=== PATIENT | female | born 1980 | race Two or more races ===

== ENCOUNTER 2016-09-09 17:23 | Inpatient (IN) | payer SELFPAY ==
[~2016-09-09] VITALS: Ht 154.9 cm; Wt 90.0 kg
[2016-09-09 19:11] LABS: Urine Bilirubin Negative (Negative); Urine Blood Negative /uL (Negative); Urine Color Yellow (Yellow); Urine Glucose Normal (Normal); Urine Mucus FEW (None Seen); Urine Nitrite Negative (Negative); Urine RBC 1 /hpf (0 - 4); Urine Squamous Epithelial Cell FEW /hpf (<5); Urine Urobilinogen Normal (Negative)
[2016-09-09 19:12] LABS: Urine Ketone 2+ (Negative)
[2016-09-09 19:21] LABS: Basophils # (auto) 0.1 uL; Basophils % (auto) 0.4 % (0.0-2.0); DEFINITIVE VIEW TRANSMISSION; Eosinophils # (auto) 0.1 uL; Eosinophils % (auto) 0.5 % (0.0-7.0); Hematocrit 40.9 % (36.0-46.0); Hemoglobin 12.5 g/dL (12.2-16.2); Lymphocytes # (auto) 1.2 uL; Lymphocytes % (auto) 8.2 % (10.0-50.0); Mean Corpuscular Hgb Conc. 30.5 g/dL (32.0-36.0); Mean Corpuscular Volume 75.4 fL (80.0-100.0); Mean Platelet Volume 9.3 fL (7.4-10.4); Monocytes # (auto) 0.9 uL; Neutrophils # (auto) 12.5 uL; Neutrophils % (auto) 84.9 % (37.0-80.0); Platelet Count (auto) 333 10^3/uL (140-450); Red Cell Distribution Width 17.3 % (11.6-16.0); White Blood Cell 14.7 10^3/uL (4.4-10.8)
[2016-09-09 19:39] LABS: Albumin 3.5 g/dL (3.4-5.0); Calcium 8.8 mg/dL (8.5-10.1); Potassium 4.2 mmol/L (3.5-5.1)
[2016-09-09 19:42] LABS: Bilirubin, Total 0.5 mg/dL (0.2-1.0); Total Protein 7.7 g/dL (6.4-8.2)
[2016-09-09 19:54] LABS: Hypochromia Moderate; Platelet Estimate Adequate
[2016-09-10] MEDS ORDERED: ONDANSETRON HCL 4 MG/2 ML VIAL IV ONE (03:45)
[2016-09-10] MEDS ORDERED: MORPHINE SULF INJ 2 MG/ML SYRINGE 1ML IV ONE (03:45)
[2016-09-10] MEDS ORDERED: SODIUM CHLORIDE 0.9% 1,000 ML IV ONE (03:45)
[2016-09-10] MEDS ORDERED: NITROGLYCERIN 0.4 MG SL TAB SL PRN (07:15)
[2016-09-10] MEDS ORDERED: MORPHINE SULF INJ 2 MG/ML SYRINGE 1ML IV PRN (07:15)
[2016-09-10] MEDS ORDERED: cefTRIAXone 1GM/50ML D5W 50 ML IV ONE (08:00)
[2016-09-10] MEDS: FAMOTIDINE (10MG/ML) 2ML VL IV SCH ×2 (08:27→20:38)
[2016-09-10] MEDS: SODIUM CHLORIDE 0.9% 1,000 ML IV SCH ×2 (08:27→18:02)
[2016-09-10] MEDS: MORPHINE SULF INJ 2 MG/ML SYRINGE 1ML IV PRN ×3 (08:28→20:55)
[2016-09-10 10:01] VITALS: BP 166/98
[2016-09-10 11:27] LABS: Amylase 27 U/L (25-115)
[2016-09-10] MEDS: metroNIDAZOLE 500MG/100ML 100 ML IV SCH ×2 (12:50→18:02)
[2016-09-10 13:00] VITALS: BP 158/106
[2016-09-10] MEDS: LORazepam 2MG/ML-1ML VIAL IV PRN (15:33)
[2016-09-10 16:44] VITALS: BP 143/99
[2016-09-10 22:00] VITALS: BP 156/103
[2016-09-11] MEDS: metroNIDAZOLE 500MG/100ML 100 ML IV SCH ×4 (00:07→18:21)
[2016-09-11] MEDS: SODIUM CHLORIDE 0.9% 1,000 ML IV SCH ×3 (03:03→23:03)
[2016-09-11] MEDS: MORPHINE SULF INJ 2 MG/ML SYRINGE 1ML IV PRN ×2 (04:02→10:17)
[2016-09-11 06:12] LABS: INR 1.06 (0.9-1.15); Partial Thromboplastin Time 32.7 sec (22.64-33.71); Prothrombin Time 10.9 sec (9.37-12.3)
[2016-09-11 06:13] VITALS: BP 148/94
[2016-09-11 06:13] LABS: Basophils # (auto) 0 uL; Basophils % (auto) 0.5 % (0.0-2.0); DEFINITIVE VIEW TRANSMISSION; Eosinophils # (auto) 0.3 uL; Hemoglobin 10.6 g/dL (12.2-16.2); Lymphocytes # (auto) 1.3 uL; Lymphocytes % (auto) 18.2 % (10.0-50.0); Mean Corpuscular Hemoglobin 22.7 pg (28.0-32.0); Mean Corpuscular Hgb Conc. 30.4 g/dL (32.0-36.0); Mean Corpuscular Volume 74.7 fL (80.0-100.0); Mean Platelet Volume 9.2 fL (7.4-10.4); Monocytes # (auto) 0.6 uL; Monocytes % (auto) 9.1 % (0.0-12.0); Neutrophils # (auto) 4.8 uL; Neutrophils % (auto) 68.2 % (37.0-80.0); Platelet Count (auto) 290 10^3/uL (140-450)
[2016-09-11 06:31] LABS: Potassium 3.8 mmol/L (3.5-5.1)
[2016-09-11 06:37] LABS: Albumin 2.4 g/dL (3.4-5.0); BUN/Creatinine Ratio 14.3; Calcium 7.7 mg/dL (8.5-10.1); Magnesium 2.2 mg/dL (1.6-2.6)
[2016-09-11 06:40] LABS: Bilirubin, Total 0.3 mg/dL (0.2-1.0); Total Protein 6.2 g/dL (6.4-8.2)
[2016-09-11 09:00] VITALS: BP 136/89
[2016-09-11] MEDS: FAMOTIDINE (10MG/ML) 2ML VL IV SCH ×2 (09:57→20:40)
[2016-09-11] MEDS: cefTRIAXone 1GM/50ML D5W 50 ML IV SCH (09:58)
[2016-09-11] MEDS: PROMETHAZINE HCL 25 MG/ML 1ML IV PRN (10:16)
[2016-09-11] MEDS ORDERED: ceFAZolin 1GM/50ML D5W 50 ML IV ONE (12:27)
[2016-09-11 13:00] VITALS: BP 137/88
[2016-09-11] MEDS ORDERED: SODIUM CHLORIDE LOCK 20 ML ONE (13:39)
[2016-09-11] MEDS ORDERED: fentaNYL CITRATE 100 MCG/2 ML VL ONE ×3 (13:39→14:48)
[2016-09-11] MEDS ORDERED: GLYCOPYRROLATE 0.2 MG/ML 1ML VIAL ONE (13:39)
[2016-09-11] MEDS ORDERED: ONDANSETRON HCL 4 MG/2 ML VIAL ONE (13:39)
[2016-09-11] MEDS ORDERED: NEOSTIGMINE 1 MG/ML INJ (10mg/10ML VIAL) ONE (13:39)
[2016-09-11] MEDS ORDERED: MEPERIDINE HCL (50 MG/ML) 1 ML VIAL ONE (13:39)
[2016-09-11] MEDS ORDERED: KETOROLAC TROMETH 60MG/2ML VIAL IM ONE (13:39)
[2016-09-11] MEDS ORDERED: MIDAZOLAM HCL 1MG/1ML-2 ML VIAL ONE ×2 (13:39→14:04)
[2016-09-11] MEDS ORDERED: ROCURONIUM 10MG/ML 10ML VIAL IV ONE ×2 (13:39→14:04)
[2016-09-11] MEDS ORDERED: PROPOFOL 10 MG/ML 20 ML IV ONE ×2 (13:39→14:04)
[2016-09-11] MEDS ORDERED: SUCCINYLCHOLINE CHLORIDE 20 MG/ML 10ML VIAL IV ONE (14:24)
[2016-09-11] MEDS ORDERED: LABETALOL HCL 5 MG/ML 4ML SYRINGE IV ONE (14:24)
[2016-09-11] MEDS ORDERED: hydrALAZINE HCL 20 MG/ML VL ONE (15:49)
[2016-09-11] MEDS ORDERED: hydrALAZINE HCL 20 MG/ML VL IV PRN (16:00)
[2016-09-11] MEDS ORDERED: ONDANSETRON HCL 4 MG/2 ML VIAL IV ONE (16:00)
[2016-09-11] MEDS ORDERED: ePHEDrine SULFATE 50 MG/ML AMP IV PRN (16:00)
[2016-09-11] MEDS ORDERED: HYDROmorphone HCL 2 MG/ML VL IV PRN (16:00)
[2016-09-11] MEDS ORDERED: ACETAMINOPHEN IV 100 ML IV ONE ×2 (16:15→16:30)
[2016-09-11] MEDS ORDERED: hydrALAZINE HCL 20 MG/ML VL IV ONE (16:15)
[2016-09-11 21:55] VITALS: BP 147/99
[2016-09-12] MEDS: metroNIDAZOLE 500MG/100ML 100 ML IV SCH ×4 (00:01→17:39)
[2016-09-12] MEDS: MORPHINE SULF INJ 2 MG/ML SYRINGE 1ML IV PRN ×4 (01:48→16:57)
[2016-09-12 05:25] VITALS: BP 141/89
[2016-09-12 06:27] LABS: Basophils # (auto) 0 uL; Basophils % (auto) 0.2 % (0.0-2.0); DEFINITIVE VIEW TRANSMISSION; Eosinophils # (auto) 0 uL; Hematocrit 36.6 % (36.0-46.0); Hemoglobin 11.2 g/dL (12.2-16.2); Lymphocytes # (auto) 0.6 uL; Lymphocytes % (auto) 6.6 % (10.0-50.0); Mean Corpuscular Hemoglobin 22.9 pg (28.0-32.0); Mean Corpuscular Hgb Conc. 30.7 g/dL (32.0-36.0); Mean Corpuscular Volume 74.7 fL (80.0-100.0); Mean Platelet Volume 9.1 fL (7.4-10.4); Monocytes # (auto) 0.2 uL; Monocytes % (auto) 2.7 % (0.0-12.0); Neutrophils # (auto) 7.9 uL; Neutrophils % (auto) 90.5 % (37.0-80.0); Platelet Count (auto) 345 10^3/uL (140-450); Red Cell Distribution Width 17.8 % (11.6-16.0); White Blood Cell 8.7 10^3/uL (4.4-10.8)
[2016-09-12 06:34] LABS: BUN/Creatinine Ratio 16.1; Calcium 8.1 mg/dL (8.5-10.1); INR 1.14 (0.9-1.15); Potassium 3.8 mmol/L (3.5-5.1); Prothrombin Time 11.7 sec (9.37-12.3)
[2016-09-12] MEDS: SODIUM CHLORIDE 0.9% 1,000 ML IV SCH ×2 (09:03→20:12)
[2016-09-12 09:37] VITALS: BP 159/102
[2016-09-12] MEDS: FAMOTIDINE (10MG/ML) 2ML VL IV SCH ×2 (09:39→20:11)
[2016-09-12] MEDS: cefTRIAXone 1GM/50ML D5W 50 ML IV SCH (09:39)
[2016-09-12] MEDS: LABETALOL HCL 5 MG/ML 4ML SYRINGE IV PRN ×2 (13:10→17:40)
[2016-09-12 13:16] VITALS: BP 178/114
[2016-09-12] MEDS: LORazepam 2MG/ML-1ML VIAL IV PRN (13:32)
[2016-09-12 17:18] VITALS: BP 165/114
[2016-09-12 22:00] VITALS: BP 133/91
[2016-09-13] MEDS: metroNIDAZOLE 500MG/100ML 100 ML IV SCH ×4 (00:36→17:27)
[2016-09-13] MEDS: MORPHINE SULF INJ 2 MG/ML SYRINGE 1ML IV PRN ×4 (00:47→20:07)
[2016-09-13] MEDS: SODIUM CHLORIDE 0.9% 1,000 ML IV SCH ×2 (04:40→15:03)
[2016-09-13] MEDS: LABETALOL HCL 5 MG/ML 4ML SYRINGE IV PRN ×2 (05:11→17:27)
[2016-09-13 05:15] VITALS: BP 166/105
[2016-09-13 08:00] VITALS: BP 166/105
[2016-09-13] MEDS: PROMETHAZINE HCL 25 MG/ML 1ML IV PRN (09:32)
[2016-09-13] MEDS: FAMOTIDINE (10MG/ML) 2ML VL IV SCH ×2 (09:40→20:06)
[2016-09-13] MEDS: LORazepam 2MG/ML-1ML VIAL IV PRN ×2 (09:41→18:57)
[2016-09-13] MEDS: cefTRIAXone 1GM/50ML D5W 50 ML IV SCH (10:05)
[2016-09-13 12:00] VITALS: BP 152/117
[2016-09-13 15:36] LABS: Albumin 2.6 g/dL (3.4-5.0); BUN/Creatinine Ratio 8.6; Calcium 7.7 mg/dL (8.5-10.1); Potassium 3.2 mmol/L (3.5-5.1)
[2016-09-13 15:39] LABS: Bilirubin, Total 0.2 mg/dL (0.2-1.0); Total Protein 6.2 g/dL (6.4-8.2)
[2016-09-13 17:00] VITALS: BP 162/108
[2016-09-13 20:00] VITALS: BP 140/90
[2016-09-13 21:44] VITALS: BP 140/90
[2016-09-14] MEDS: metroNIDAZOLE 500MG/100ML 100 ML IV SCH ×3 (00:38→11:30)
[2016-09-14 05:09] VITALS: BP 146/81
[2016-09-14] MEDS: SODIUM CHLORIDE 0.9% 1,000 ML IV SCH ×2 (05:42→10:12)
[2016-09-14] MEDS: FAMOTIDINE (10MG/ML) 2ML VL IV SCH (07:55)
[2016-09-14] MEDS: cefTRIAXone 1GM/50ML D5W 50 ML IV SCH (08:04)
[2016-09-14 09:03] VITALS: BP 150/106
[2016-09-14] MEDS: MORPHINE SULF INJ 2 MG/ML SYRINGE 1ML IV PRN (11:43)
[2016-09-14 12:16] VITALS: BP 165/109
[2016-09-14] MEDS: LABETALOL HCL 5 MG/ML 4ML SYRINGE IV PRN (12:34)
[2016-09-14] MEDS ORDERED: METOPROLOL TARTRATE 50 MG TAB PO SCH (13:45)
[2016-09-14 15:09] VITALS: BP 155/104
[2016-09-14 15:24] VITALS: BP 155/104
== END 2016-09-14 15:50 | disposition home or self-care (01) | DRG 853 ==
LOC: ER 17:27 → TELE 17:28 → TELE-WESTW 09-10 08:35
PROVIDERS: ADMIT Internal Medicine; ATTEND Internal Medicine Pulmonary Disease
PROC: 0FN44ZZ Release Gallbladder, Percutaneous Endoscopic Approach (ICD-10-PCS; 2016-09-11)
PROC: 0W9G40Z Drainage of Peritoneal Cavity with Drainage Device, Percutaneous Endoscopic Approach (ICD-10-PCS; 2016-09-11)
PROC: 0FT44ZZ Resection of Gallbladder, Percutaneous Endoscopic Approach (ICD-10-PCS; principal; 2016-09-11 14:08)
DX: A41.9 Sepsis, unspecified organism (principal); E43 Unspecified severe protein-calorie malnutrition; K65.1 Peritoneal abscess; K65.9 Peritonitis, unspecified; E87.1 Hypo-osmolality and hyponatremia; K80.00 Calculus of gallbladder with acute cholecystitis without obstruction; K66.0 Peritoneal adhesions (postprocedural) (postinfection); D72.825 Bandemia; I10 Essential (primary) hypertension; E66.01 Morbid (severe) obesity due to excess calories; K82.8 Other specified diseases of gallbladder; Z98.890 Other specified postprocedural states; Z68.37 Body mass index [BMI] 37.0-37.9, adult
CPT/HCPCS: 36415; 74181; 76705; 80048; 80053; 81001; 81025; 82150; 83690; 83735; 85025; 85610; 85730; 86850; 86900; 86901; 93005; 96361; 96374; 96375; J0131; J0330; J0690; J0696; J1885; J2250; J2405; J2704; J3490